=== PATIENT | female | born 1970 | race Caucasian/White ===

== ENCOUNTER → 2025-01-14 | Outpatient (CLI) | payer MEDICARE, BC, SELFPAY ==
[2025-01-14 08:42] LABS: Glucose Estimated Average 143 mg/dL (80-131); Hemoglobin A1C 6.6 % Hgb (4.8-6.0)
[2025-01-14 08:50] LABS: Alanine Aminotransferase 28 U/L (10-49); Albumin, Serum 4.4 gm/dL (3.5-5.0); Albumin/Globulin Ratio 1.7 (1.2-2.2); Alkaline Phosphatase 81 U/L (46-116); Anion Gap 11 (7-16); Aspartate Amino Transferase 44 U/L (0-34); BUN/Creatinine Ratio 20 Ratio (12-20); Bilirubin,Total 0.6 mg/dL (0.3-1.2); Blood Urea Nitrogen 12 mg/dL (9-23); Calcium 9.6 mg/dL (8.3-10.6); Calcium (Corrected) 9.6 mg/dL (8.5-10.1); Carbon Dioxide 24.9 mMol/L (20.0-31.0); Chloride 106 mMol/L (98-107); Creatinine (Component) 0.6 mg/dL (0.6-1.3); Globulin 2.6 gm/dL (2.3-3.5); Glucose 154 mg/dL (74-106); Osmolality,Calculated 285 (275-295); Potassium 3.7 mMol/L (3.4-5.1); Sodium 142 mMol/L (136-145); eGFR > 60 See Note
== END | disposition home or self-care (01) ==
LOC: COPL 06:51
PROVIDERS: PCP Internal Medicine; Referring Provider Internal Medicine; Visit Provider Internal Medicine
DX: I10 Essential (primary) hypertension (principal); E11.65 Type 2 diabetes mellitus with hyperglycemia
CPT/HCPCS: 36415; 80053; 83036

== ENCOUNTER 2025-02-09 10:00 | Day surgery (SDC) | payer MEDICARE, BC, SELFPAY ==
--- NOTE | 2025-02-06 16:02 | EKG_ITS ---
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1970 Requested By: Anya Curiel Order Number: [id number] Reading MD: Anya Curiel Measurements Intervals [place] Rate: 90 P: -6 IN: 119 QRS: -14 QRSD: 98 T: 10 QT: 361 QTc: 443 Interpretive Statements SINUS RHYTHM WITH SHORT IN INTERVAL LOW QRS VOLTAGE IN PRECORDIAL LEADS [QRS DEFLECTION < 1.0 mV IN CHEST LEADS] PATTERN CONSISTENT WITH PULMONARY DISEASE MODERATE VOLTAGE CRITERIA FOR LVH, CONSIDER NORMAL VARIANT [MEETS CRITERIA IN ONE OF: R(aVL), S(V1), R(V5), R(V5/V6)+S(V1)] NONSPECIFIC T-WAVE ABNORMALITY No previous ECG available for comparison /store/S0/[id number].pdf
[2025-02-06 17:42] LABS: Alanine Aminotransferase 35 U/L (10-49); Albumin, Serum 4.5 gm/dL (3.5-5.0); Albumin/Globulin Ratio 1.7 (1.2-2.2); Alkaline Phosphatase 83 U/L (46-116); Anion Gap 9 (7-16); Aspartate Amino Transferase 55 U/L (0-34); BUN/Creatinine Ratio 29 Ratio (12-20); Bilirubin,Total 0.5 mg/dL (0.3-1.2); Blood Urea Nitrogen 20 mg/dL (9-23); Calcium 9.3 mg/dL (8.3-10.6); Calcium (Corrected) 9.3 mg/dL (8.5-10.1); Carbon Dioxide 25.3 mMol/L (20.0-31.0); Chloride 110 mMol/L (98-107); Creatinine (Component) 0.7 mg/dL (0.6-1.3); Globulin 2.6 gm/dL (2.3-3.5); Glucose 82 mg/dL (74-106); Osmolality,Calculated 288 (275-295); Potassium 3.5 mMol/L (3.4-5.1); Sodium 144 mMol/L (136-145); Total Protein 7.1 gm/dL (5.7-8.2); eGFR > 60 See Note
[2025-02-06 18:10] LABS: Partial Thromboplastin Time 27.1 Seconds (22.0-36.0); Prothrombin Time 10.9 Seconds (9.0-12.2)
[2025-02-09 10:05] VITALS: BMI 51.9
[2025-02-09 10:36] VITALS: BP 128/82; PULSE 65; RESP 15; TEMP 36.7; O2SAT 96
[2025-02-09] MEDS: RINGERS LACTATED 1000 ML 1,000 ML 125 ML IV (12:32)
[2025-02-09 13:29] VITALS: BP 132/63; PULSE 87; RESP 16; TEMP 36.9; O2SAT 91
[2025-02-09 13:39] VITALS: BP 132/76; PULSE 88; RESP 14; O2SAT 95
[2025-02-09 13:49] VITALS: BP 140/75; PULSE 81; RESP 15; O2SAT 94
--- NOTE | 2025-02-09 13:52 | SUR.PHASEII ---
1350 Pt more awake and alert. C/O rectal pain. Pt repositioned for comfort. Dr Curiel informed of pt's discomfort. No new orders rec'd. Reassurance offered. Pt carlos po fluids.
[2025-02-09 13:59] VITALS: BP 133/83; PULSE 79; TEMP 36.9; O2SAT 95
--- NOTE | 2025-02-09 15:01 | SUR.PHASEII ---
1400 Pt responding well to repositioning, distraction and therapeutic touch. Less grimacing seen. Princess PO fluids. 1410 Pt assessment unchanged. Pt stating has some discomfort relief. Amb with steady gait. assisting pt with getting dressed. DC instructions given. Aware of new prescriptions, phoned into [facility]. Both state understanding. Pt meets dc criteria-to home.
== END 2025-02-09 14:10 | disposition home or self-care (01) ==
PROVIDERS: PCP Internal Medicine; Referring Provider Specialist; Visit Provider Specialist
PROC: 0DBE8ZX Excision of Large Intestine, Via Natural or Artificial Opening Endoscopic, Diagnostic (ICD-10-PCS; CPT 45380; principal; 2025-02-09 11:00)
PROC: (CPT 43239; 2025-02-09 11:00)
DX: K52.9 Noninfective gastroenteritis and colitis, unspecified (principal); K63.89 Other specified diseases of intestine; K62.89 Other specified diseases of anus and rectum; K64.3 Fourth degree hemorrhoids; Q43.8 Other specified congenital malformations of intestine
CPT/HCPCS: 45380; 36415; 80053; 84703; 85610; 85730; 93005; A4649; J7120